=== PATIENT | male | born 1995 ===

== ENCOUNTER 2017-10-15 10:30 | Day surgery (SDC) | payer BC ==
[2017-09-22 09:30] VITALS: BMI 21.7
--- NOTE | 2017-10-15 09:58 | CP.SDSHP ---
Same Day Surgery H & P - History Proposed Procedure: Excision of anal lesions - Allergies Allergies: Allergies Penicillins Allergy (Intermediate, Verified 09/22/17 09:31) RASH - Date & Time Date: 10/15/17 Time: 09:58 Short Stay Discharge - Short Stay Discharge Admitting Diagnosis/Reason for Visit: ANOGENITAL (VENEREAL) WARTS Disposition: HOME/ ROUTINE
[2017-10-15] MEDS ORDERED: Propofol 10 mg/ml Inj (20 ML) ONE (12:01)
[2017-10-15] MEDS ORDERED: Midazolam 2 MG/2 ML VIAL ONE (12:01)
[2017-10-15] MEDS ORDERED: Lidocaine/Epinephrine 1% 1:100000 10 ML IJ ONE (12:15)
[2017-10-15] MEDS ORDERED: Bupivacaine HCl 0.25% PF (30 ml) Inj ONE (12:15)
--- NOTE | 2017-10-15 12:54 | PCM.SURG1 ---
Surgeon's Initial Post Op Note - Surgeon's Notes Surgeon: [employer]: VILMA [id number] Pre-Operative Diagnosis: Perianal lesions Operative Findings: perianal lesions Post-Operative Diagnosis: Perianal lesions Operation Performed: Excision and fulgaration of perianal lesion Specimen/Specimens Removed: Perianal lesions Estimated Blood Loss: EBL {In ML}: 5 Date of Surgery/Procedure: 10/15/17 Time of Surgery/Procedure: 12:53
[2017-10-15] MEDS ORDERED: Lactated Ringer's 1,000 ML IV SCH (13:00)
[2017-10-15] MEDS: HYDROmorphone 0.5 mg/0.5 ml ISec IVP PRN ×5 (13:05→14:21)
[2017-10-15 15:19] VITALS: RESP 18
[2017-10-15 17:54] VITALS: BP 117/72; PULSE 100; TEMP 97.8; O2SAT 97
--- NOTE | 2017-10-15 23:01 | OP ---
PROCEDURE DATE: 10/15/2017 SURGEON: Katelyn Alvarado MD [employer] OPERATOR: TYPE OF ANESTHESIA: General. ANESTHESIA ADMINISTERED BY: Dr. Oliveira. PREOPERATIVE DIAGNOSIS: Large perianal and anal lesions, possible condylomas. POSTOPERATIVE DIAGNOSIS: Large perianal and anal lesions, possible condylomas. PROCEDURE: Excision and fulguration of anal and perianal lesions. FINDINGS: This is a 22-year-old gentleman who presented with a painful and some bleeding anal lesions. There was a large perianal lesion about 3 cm in length with a very short pedicle in the right posterior location. There were smaller lesions noted in the left anterior, right anterior, and few satellite and few smaller in the dentate line, mostly posterior. DESCRIPTION OF PROCEDURE: After satisfactory general anesthesia, the patient in the setup, the perianal area was prepped and draped in usual fashion. The perianal tissue was infiltrated with combination of Marcaine 0.25 with lidocaine 1% with epinephrine about 5 mL. The large lesion in the right posterior location was excised using an electrocautery and then closed with 3-0 chromic gut sutures to control the bleeder. The largest about 1 cm left anterior and right anterior were excised and bleeding controlled. Few smaller were fulgurated and the few noted in the posterior dentate line location were fulgurated due to presence of some internal hemorrhoids. A suture of 3-0 chromic suture was used to control hemostasis. Surgicel was inserted in the anal canal, and he tolerated the procedure and transferred to the recovery room in stable condition. Estimated blood loss about less than 5 ml. Katelyn Alvarado MD
== END 2017-10-15 17:57 | disposition home or self-care (01) ==
LOC: C.SDS 10:30
PROVIDERS: ATTEND Colon & Rectal Surgery
DX: K62.9 Disease of anus and rectum, unspecified (principal)
CPT/HCPCS: 46922; 88307; J1170; J2001; J2250; J2704; J3010